=== PATIENT | male | born 1995 | race African-American/Black ===

== ENCOUNTER 2020-03-20 16:56 | Emergency (ER) | payer BC, MEDICARE, OTHER ==
--- NOTE | 2020-03-20 17:38 | EDM.PDOC ---
ED HPI GENERAL MEDICAL PROBLEM - General Chief Complaint: Respiratory Problem Stated Complaint: COUGH, COVID EXPOSURE Time Seen by Provider: 03/20/20 16:58 Source of Information: Reports: Patient History Limitations: Reports: No Limitations - History of Present Illness INITIAL COMMENTS - FREE TEXT/NARRATIVE: Patient comes to ER requesting Covid testing. Has had cough and scratchy throat since yesterday. Both of his two roommates are Covid + and currently ill. No fever. No SOB. No other complaints. Denies other chronic health problems. Works at [employer]. - Related Data Allergies Allergy/AdvReac Type Severity Reaction Status Date / Time No Known Allergies Allergy Verified 03/20/20 17:04 Home Meds: Home Meds . [No Known Home Meds] 03/20/20 [History] Past Medical History - Past Health History Medical/Surgical History: Denies Medical/Surgical History ED ROS GENERAL - Review of Systems Review Of Systems: Comprehensive ROS is negative, except as noted in HPI. ED EXAM, GENERAL - Physical Exam Exam: See Below Exam Limited By: No Limitations General Appearance: Alert, WD/WN, No Apparent Distress Eye Exam: Bilateral Eye: EOMI, PERRL Ears: Hearing Grossly Normal Nose: No: Nasal Deformity, Nasal Swelling, Nasal Drainage Throat/Mouth: Normal Lips, Normal Voice, No Airway Compromise Head: Atraumatic, Normocephalic Neck: Supple, Full Range of Motion Respiratory/Chest: No Respiratory Distress, Lungs Clear, Normal Breath Sounds, No Accessory Muscle Use Cardiovascular: Regular Rate, Rhythm, No Murmur GI/Abdominal: Soft, Non-Tender (Male) Exam: Deferred Rectal (Males) Exam: Deferred Back Exam: No: Muscle Spasm Extremities: Normal Capillary Refill Neurological: Alert, Oriented, Normal Cognition, Normal Gait Psychiatric: Normal Affect, Normal Mood Skin Exam: Warm, Dry, Intact, Normal Color Course - Vital Signs Last Recorded V/S: Last Vital Signs Temp 36.6 C 03/20/20 16:58 Pulse 97 03/20/20 16:58 Resp 14 03/20/20 16:58 BP 160/90 H 03/20/20 16:58 Pulse Ox 97 03/20/20 16:58 - Orders/Labs/Meds Orders: Active Orders 24 hr Category Date Time Status CORONAVIRUS COVID-19 PCR PHL Routine Lab 03/20/20 17:30 Ordered - Re-Assessments/Exams Free Text/Narrative Re-Assessment/Exam: 03/20/20 17:49 Patient is without acute complaint other than wanting to be tested and off work from [employer]. BP elevated but vital signs otherwise stable and he has good oxygenation. BP should be rechecked when patient is feeling better. No additional procedures such as lab work/xray required at this time. Precautions reviewed. To follow up as needed PRN worsening. Departure - Departure Time of Disposition: 17:38 Disposition: Home, Self-Care 01 Condition: Good Clinical Impression: Suspected COVID-19 virus infection - Discharge Information *PRESCRIPTION DRUG MONITORING PROGRAM REVIEWED*: Not Applicable *COPY OF PRESCRIPTION DRUG MONITORING REPORT IN PATIENT DENIZ: Not Applicable Instructions: COVID-19 Frequently Asked Questions Referrals: PCP,None [Primary Care Provider] - Forms: ED Department Discharge Additional Instructions: Await further instructions from [facility] Sepsis Event Note (ED) - Evaluation Sepsis Screening Result: No Definite Risk - Focused Exam Vital Signs: Vital Signs Temp Pulse Resp BP Pulse Ox 03/20/20 16:58 36.6 C 97 14 160/90 H 97 - My Orders Last 24 Hours: My Active Orders 03/20/20 17:30 CORONAVIRUS COVID-19 PCR PHL Routine - Assessment/Plan Last 24 Hours: My Active Orders 03/20/20 17:30 CORONAVIRUS COVID-19 PCR PHL Routine
== END 2020-03-20 17:45 | disposition home or self-care (01) ==
LOC: LL.ED 16:56
DX: R05 Cough (principal); Z20.828 Contact with and (suspected) exposure to other viral communicable diseases
CPT/HCPCS: 99283

== ENCOUNTER 2020-06-05 21:41 | Emergency (ER) | payer BC ==
[2020-06-05] MEDS ORDERED: Lactated Ringers 1,000 ML IV ONE (21:59)
[2020-06-05] MEDS ORDERED: Famotidine 20 MG/2 ML SDV IVPUSH ONE (21:59)
[2020-06-05] MEDS ORDERED: Pantoprazole 40 MG Vial IVPUSH ONE (21:59)
[2020-06-05] MEDS ORDERED: Ondansetron 4 MG/2 ML SDV IVPUSH ONE (21:59)
--- NOTE | 2020-06-05 21:59 | EDM.PDOC ---
ED HPI GENERAL MEDICAL PROBLEM - General Chief Complaint: General Stated Complaint: ABDOMINALM PAIN Time Seen by Provider: 06/05/20 21:55 Source of Information: Reports: Patient, Old Records ([facility] EMR. No paper hospital chart available.) History Limitations: Reports: No Limitations - History of Present Illness INITIAL COMMENTS - FREE TEXT/NARRATIVE: Patient drove himself to the emergency room via private automobile for evaluation of a 9-day history intermittent almost daily episodes of mostly left upper and left lower abdominal cramping associated with occasional emesis, including 3 episodes of emesis today. He did have a very small bowel movement earlier today however he is not aware when he had a last good bowel movement. He does have known problems of chronic constipation and GERD but no known history of food poisoning, infection, etc.. He did take some Tylenol yesterday, however no medications today. No recent history of heartburn, hematemesis, diarrhea, melena, gross hematochezia, or any food intolerance, including fatty foods, etc.. He denies any gross hematuria, colic, or other UTI symptoms. The patient also denies any recent fever, cough, wheezing, dyspnea, etc.. His symptoms have completely resolved by time of arrival to the emergency room, however 04/15 sharp abdominal cramping shortly prior to arrival as above. Onset: Gradual, Other (As above) Duration: Intermittent, Resolved Prior to Arrival Location: Reports: Abdomen. Denies: Head, Face, Neck, Chest, Back, Pelvis, Upper Extremity, Left, Upper Extremity, Right, Lower Extremity, Left, Lower Extremity, Right, Radiates to Quality: Reports: Same as Previous Episode, Sharp Severity: Severe Improves with: Reports: None Worsens with: Reports: None Context: Reports: Other (As above). 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 [No Known Home Meds] 03/20/20 [History] Past Medical History HEENT History: Reports: None. Denies: Allergic Rhinitis, Hard of Hearing, Impaired Vision, Otitis Media, Retinal Detachment Cardiovascular History: Reports: None, Other (See Below). Denies: Afib, Aneurysm, Arrhythmia, Blood Clots/VTE/DVT, Heart Murmur, High Cholesterol, Hypertension, Syncope Other Cardiovascular History: He does not know his cholesterol status. Respiratory History: Denies: Asthma, Bronchitis, Recurrent, COPD, Intubation, Difficult, Intubation, Previous, PE, Pneumonia, Recurrent, Pneumothorax, Sleep Apnea Gastrointestinal History: Reports: Bowel Obstruction, Chronic Constipation, GERD. Denies: Celiac Disease, Cholelithiasis, Gastritis, GI Bleed, Inflammatory Bowel Disease, Irritable Bowel Syndrome, PUD Genitourinary History: Reports: None. Denies: Acute Renal Failure, Chronic Renal Insuffiency, Renal Calculus, STD, Urinary Incontinence, UTI, Recurrent Musculoskeletal History: Reports: None. Denies: Arthritis, Back Pain, Chronic, Fracture, Gout, Neck Pain, Chronic, Osteoarthritis, RA, SLE Neurological History: Reports: Headaches, Chronic, Migraines. Denies: Concussion, Head Trauma, Seizure Psychiatric History: Reports: None. Denies: Abuse, Victim of, ADD, ADHD, Addiction, Anxiety, Depression, Psych Hospitalization(s), PTSD, Suicide Attempt, Suicidal Ideation Endocrine/Metabolic History: Reports: None. Denies: Diabetes, Type I, Diabetes, Type II, Diabetes Mellitus, Type 3c, Hypothyroidism, IDDM Hematologic History: Reports: None. Denies: Anemia, Blood Transfusion(s) Immunologic History: Reports: None. Denies: AIDS, HIV, SLE Oncologic (Cancer) History: Reports: None. Denies: Colon, Hodgkin's Lymphoma, Leukemia, Lymphoma, Malignant Melanoma, Non-Hodgkin's Lymphoma, Squamous Cell Carcinoma Dermatologic History: Reports: None. Denies: Eczema, Psoriasis - Infectious Disease History Infectious Disease History: Reports: None, Novel Coronavirus (03/20/2020.). Denies: C-Difficile, Chicken Pox, Meningitis, Mononucleosis, Mumps, Pertussis (Whooping Cough), Rheumatic Fever, Rubella, Scarlet Fever, Shingles, TB, VRE - Past Surgical History Head Surgeries/Procedures: Reports: None HEENT Surgical History: Reports: None. Denies: Adenoidectomy, Cataract Surgery, Eye Surgery, LASIK, Myringotomy w Tube(s), Naso-Sinus Surgery, Oral Surgery, Tonsillectomy Cardiovascular Surgical History: Reports: None. Denies: Varicose Respiratory Surgical History: Reports: None. Denies: Thoracentesis GI Surgical History: Reports: None. Denies: Appendectomy, Cholecystectomy, Colon, EGD, Hernia, Abdominal, Hernia, Inguinal, Hernia Repair/Other Male Surgical History: Reports: None. Denies: Circumcision, Vasectomy Endocrine Surgical History: Reports: None. Denies: Thyroid Biopsy Neurological Surgical History: Reports: None. Denies: C-Spine, Discectomy, Laminectomy, Lumbar Spine, Sacral Spine, Spinal Fusion, Vertebroplasty Musculoskeletal Surgical History: Reports: None. Denies: Arthroscopic Procedure, Carpal Tunnel, Ganglion Cyst, Joint Replacement, ORIF Oncologic Surgical History: Reports: None Dermatological Surgical History: Reports: None Social & Family History - Family History : Reports: None. Denies: Renal Calculus - Tobacco Use Tobacco Use Status *Q: Current Every Day Tobacco User Tobacco Use Within Last Twelve Months: Cigarettes Years of Tobacco use: 7 Packs/Tins Daily: 0.1 Packs/Tins Daily Comment: Started smoking at age 17 with maximum use of 1 pack/day. Used Tobacco, but Quit: No Smoking Cessation Information Provided To Patient: Yes Second Hand Smoke Exposure: No Second Hand Smoke Education Provided: No - Caffeine Use Caffeine Use: Reports: Soda (3 sodas per day). Denies: Coffee, Energy Drinks, Tea - Alcohol Use Alcohol Use History: Yes Days Per Week of Alcohol Use: 2 Number of Drinks Per Day: 5 Number of Drinks Per Day Comment: Usually mixed drinks. No previous DWIs, problems with alcohol abuse, etc. Total Drinks Per Week: 10 Alcohol Use in Last Twelve Months: Yes - Recreational Drug Use Recreational Drug Use: No Drug Use in Last 12 Months: No Recreational Drug Type: Denies: Amphetamines (Speed), Cocaine, Heroin, Inhalants (Glues, Solvents, Aerosols), LSD (Acid), Marijuana/Hashish, Methamphetamine, Morphine, Oxycodone - Living Situation & Occupation Living situation: Reports: Single (No children), Other (2 roommates) Occupation: Employed ([employer]) ED ROS GENERAL - Review of Systems Review Of Systems: Comprehensive ROS is negative, except as noted in HPI. ED EXAM, GENERAL - Physical Exam Exam: Not Obtained Exam Limited By: No Limitations General Appearance: Alert, WD/WN, No Apparent Distress Head: Atraumatic, Normocephalic. No: Facial Swelling, Facial Tenderness, Sinus Tenderness Neck: Normal Inspection, Supple, Non-Tender, Full Range of Motion. No: Lymphadenopathy (L), Lymphadenopathy (R), Thyromegaly Respiratory/Chest: No Respiratory Distress, Lungs Clear, Normal Breath Sounds, No Accessory Muscle Use, Chest Non-Tender. No: Pleural Rub, Retractions Cardiovascular: Normal Peripheral Pulses, Regular Rate, Rhythm, No Edema, No Gallop, No JVD, No Murmur, No Rub. No: Gallop/S3, Gallop/S4, Friction Rub Peripheral Pulses: 2+: Radial (L), Radial (R) GI/Abdominal: Normal Bowel Sounds, Soft, Non-Tender, No Organomegaly, No Distention, No Abnormal Bruit, No Mass. No: Guarding (Male) Exam: Deferred Rectal (Males) Exam: Deferred Back Exam: Normal Inspection, Full Range of Motion. No: CVA Tenderness (L), CVA Tenderness (R), Muscle Spasm Extremities: Normal Inspection, Normal Range of Motion, Non-Tender, No Pedal Edema, Normal Capillary Refill. No: Jimmy's Sign Neurological: Alert, Oriented, CN II-XII Intact, Normal Cognition, Normal Gait, Normal Reflexes, No Motor/Sensory Deficits Psychiatric: Normal Affect, Normal Mood Skin Exam: Warm, Dry, Intact, Normal Color, No Rash. No: Diaphoretic, Wound/Incision Lymphatic: No Adenopathy Course - Vital Signs Last Recorded V/S: Last Vital Signs Temp 36.9 C 06/05/20 21:42 Pulse 73 06/05/20 21:42 Resp 16 06/05/20 21:42 BP 152/93 H 06/05/20 21:53 Pulse Ox 100 06/05/20 21:42 Vital Signs - 24 hr 06/05/20 06/05/20 21:42 21:53 Temperature [ 36.9 C Temporal] Pulse, 73 Peripheral [ Right Pulse Oximetry] Respiratory 16 Rate Blood Pressure 160/93 H 152/93 H [Left Upper Arm ] O2 Sat by Pulse 100 Oximetry - Orders/Labs/Meds Labs: Laboratory Tests 06/05/20 06/05/2020 Range/Units 22:19 22:19 22:19 WBC 7.8 (4.0-10.2) K/uL RBC 4.68 (4.33-5.41) M/uL Hgb 14.3 (13.1-16.8) g/dL Hct 42.3 (39.0-49.0) % MCV 90.4 (84.0-98.0) fL MCH 30.6 (28.2-33.3) pg MCHC 33.8 (31.7-36.0) g/dL RDW 14.3 H (11.2-14.1) % Plt Count 274 (150-350) K/uL Neut % (Auto) 50.0 (45.0-80.0) % Lymph % (Auto) 18.4 (10.0-50.0) % Stewart % (Auto) 12.1 (2.0-14.0) % Eos % (Auto) 19.1 H (0.0-5.0) % Baso % (Auto) 0.4 (0.0-2.0) % Neut # (Auto) 3.91 (1.40-7.00) K/uL Lymph # (Auto) 1.44 (0.50-3.50) K/uL Stewart # (Auto) 0.95 (0.00-1.00) K/uL Eos # (Auto) 1.49 H (0.00-0.50) K/uL Baso # (Auto) 0.03 (0.00-0.20) K/uL PT 10.2 (9.5-12.0) SEC INR 1.0 APTT 24.5 (24.5-32.8) SEC Sodium (136-145) mmol/L Potassium (3.5-5.1) mmol/L Chloride (98-107) mmol/L Carbon Dioxide (21.0-32.0) mmol/L BUN (7-18) mg/dL Creatinine (0.51-1.17) mg/dL Est Cr Clr Drug Dosing mL/min Estimated GFR (MDRD) mL/min Glucose (74-106) mg/dL Lactic Acid (0.4-2.0) mmol/L Uric Acid (2.6-7.2) mg/dL Calcium (8.5-10.1) mg/dL Magnesium (1.8-2.4) mg/dL Total Bilirubin (0.2-1.0) mg/dL AST (15-37) U/L ALT (12-78) U/L Alkaline Phosphatase (46-116) IU/L Total Protein (6.4-8.2) g/dL Albumin (3.4-5.0) g/dL Amylase 27 (25-115) U/L Lipase (73-393) U/L Specimen Type Urine Color Urine Appearance Urine pH (5.0-9.0) Ur Specific Honor (1.005-1.030) Urine Protein (NEGATIVE) mg/dL Urine Glucose (UA) (NEGATIVE) mg/dL Urine Ketones (NEGATIVE) mg/dL Urine Occult Blood (NEGATIVE) Urine Nitrite (NEGATIVE) Urine Bilirubin (NEGATIVE) Urine Urobilinogen (0.2-1.0) E.U./dL Ur Leukocyte Esterase (NEGATIVE) U Hyaline Cast (Auto) Urine RBC /HPF Urine WBC /HPF Ur Epithelial Cells /LPF Urine Bacteria (NONE TO FEW) /HPF Urine Mucus (NEGATIVE) /LPF 06/05/20 06/05/20 06/05/20 Range/Units 22:19 22:19 22:24 WBC (4.0-10.2) K/uL RBC (4.33-5.41) M/uL Hgb (13.1-16.8) g/dL Hct (39.0-49.0) % MCV (84.0-98.0) fL MCH (28.2-33.3) pg MCHC (31.7-36.0) g/dL RDW (11.2-14.1) % Plt Count (150-350) K/uL Neut % (Auto) (45.0-80.0) % Lymph % (Auto) (10.0-50.0) % Stewart % (Auto) (2.0-14.0) % Eos % (Auto) (0.0-5.0) % Baso % (Auto) (0.0-2.0) % Neut # (Auto) (1.40-7.00) K/uL Lymph # (Auto) (0.50-3.50) K/uL Stewart # (Auto) (0.00-1.00) K/uL Eos # (Auto) (0.00-0.50) K/uL Baso # (Auto) (0.00-0.20) K/uL PT (9.5-12.0) SEC INR APTT (24.5-32.8) SEC Sodium 139 (136-145) mmol/L Potassium 3.4 L (3.5-5.1) mmol/L Chloride 100 (98-107) mmol/L Carbon Dioxide 27.0 (21.0-32.0) mmol/L BUN 14 (7-18) mg/dL Creatinine 0.88 (0.51-1.17) mg/dL Est Cr Clr Drug Dosing 123.49 mL/min Estimated GFR (MDRD) > 60 mL/min Glucose 94 (74-106) mg/dL Lactic Acid 1.9 (0.4-2.0) mmol/L Uric Acid 4.8 (2.6-7.2) mg/dL Calcium 8.7 (8.5-10.1) mg/dL Magnesium 1.5 L (1.8-2.4) mg/dL Total Bilirubin 0.4 (0.2-1.0) mg/dL AST 23 (15-37) U/L ALT 28 (12-78) U/L Alkaline Phosphatase 98 (46-116) IU/L Total Protein 7.9 (6.4-8.2) g/dL Albumin 3.9 (3.4-5.0) g/dL Amylase (25-115) U/L Lipase 31 L (73-393) U/L Specimen Type Urinvoid Urine Color Saba Urine Appearance Clear Urine pH 6.5 (5.0-9.0) Ur Specific Honor >= 1.030 (1.005-1.030) Urine Protein 30 H (NEGATIVE) mg/dL Urine Glucose (UA) Negative (NEGATIVE) mg/dL Urine Ketones 40 H (NEGATIVE) mg/dL Urine Occult Blood Trace-intact H (NEGATIVE) Urine Nitrite Negative (NEGATIVE) Urine Bilirubin Small H (NEGATIVE) Urine Urobilinogen 1.0 (0.2-1.0) E.U./dL Ur Leukocyte Esterase Negative (NEGATIVE) U Hyaline Cast (Auto) Occasional Urine RBC 5-10 H /HPF Urine WBC Not seen /HPF Ur Epithelial Cells Occasional /LPF Urine Bacteria Occasional (NONE TO FEW) /HPF Urine Mucus Moderate H (NEGATIVE) /LPF Urine specimen set up for culture and sensitivity. Meds: Medications Discontinued Medications Generic Name Dose Route Start Last Admin Trade Name Octavioq PRN Reason Stop Dose Admin Famotidine 40 mg 06/05/20 21:59 06/05/20 22:28 Pepcid IVPUSH 06/05/20 22:00 40 mg ONETIME ONE Administration Lactated Ringer's 1,000 mls @ 999 mls/hr 06/05/20 21:59 06/05/20 22:41 Ringers, Lactated IV 06/05/20 22:59 999 mls/hr .BOLUS ONE Administration Magnesium Citrate 0 ml 06/05/20 23:04 06/05/20 23:21 Citrate Of Magnesia PO 06/05/20 23:05 296 ml ONETIME ONE Administration Ondansetron HCl 4 mg 06/05/20 21:59 06/05/20 22:28 Zofran IVPUSH 06/05/20 22:00 4 mg ONETIME ONE Administration Pantoprazole Sodium 40 mg 06/05/20 21:59 06/05/20 22:28 Protonix Iv IVPUSH 06/05/20 22:00 40 mg ONETIME ONE Administration Polyethylene Glycol 17 gm 06/05/20 23:04 06/05/20 23:21 Miralax PO 06/05/20 23:05 17 gm ONETIME ONE Administration Sodium Chloride 10 ml 06/05/20 21:59 06/05/20 23:25 Saline Flush FLUSH 10 ml ASDIRECTED PRN Administration Keep Vein Open - Radiology Interpretation Free Text/Narrative:: Acute abdominal x-ray shows evidence of moderate to severe diffuse stool with no evidence of fluid levels, free air, ileus, obstruction, intra-abdominal calcifications, pulmonary infiltrates, cardiomegaly, CHF, pneumothorax, etc. Departure - Departure Time of Disposition: 23:45 Disposition: Home, Self-Care 01 Condition: Good Clinical Impression: Tobacco abuse counseling, Elevated blood pressure reading, Hypokalemia Abdominal pain Qualifiers: Abdominal location: left lower quadrant Qualified Code(s): R10.32 - Left lower quadrant pain Constipation Qualifiers: Constipation type: other constipation type Qualified Code(s): K59.09 - Other constipation - Discharge Information *PRESCRIPTION DRUG MONITORING PROGRAM REVIEWED*: Not Applicable *COPY OF PRESCRIPTION DRUG MONITORING REPORT IN PATIENT DENIZ: Not Applicable Instructions: Steps to Quit Smoking, [id number], Health Risks of Smoking, Chronic Constipation, Abdominal Pain, Adult, [id number] Referrals: PCP,None [Primary Care Provider] - Forms: ED Department Discharge Additional Instructions: 1. Follow up with your regular provider in 10-14 days as needed, if symptoms persist. Bring these discharge instructions with you to that visit.. 2. [place] diet including encouragement of oral fluids such as sports drinks, etc. for 24-48 hours as directed. Advance to regular high-fiber diet as tolerated thereafter. 3. Stop all tobacco use SYL as directed/per provided information and consider contacting [employer]uit LIne, etc.. 4. Work excuse- See Form 5. Immediately after this visit verify that your cellular telephone's voicemail has been activated and is empty. Also verify that your home telephone's answering machine is operating properly and has space to receive messages. Note that it is sometimes necessary for us to be able to contact you at a later date to discuss your medical care. 6. Please remember that we are ALWAYS here for you and want to answer any questions you may have. Feel free to call the hospital any time and we call you back SYL. 7. Continue to observe your blood pressures closely through your regular provider in the [facility] nurse as discussed. 8. Obtain your influenza booster SYL. Sepsis Event Note (ED) - Evaluation Sepsis Screening Result: No Definite Risk - Problem List & Annotations (1) Abdominal pain SNOMED Code(s): 60376327 Code(s): R10.9 - UNSPECIFIED ABDOMINAL PAIN Status: Acute Priority: High Onset Date: ~06/04/20 Annotation/Comment:: Patient missed work on 06/04 and also today. Abdominal pain likely secondary to his constipation. MiraLAX and magnesium citrate given prior to discharge with patient counseled on high-fiber diet with encouragement of oral fluids. [employer] work excuse was completed. Otherwise overall good response to medical therapy as above. Qualifiers: Abdominal location: left lower quadrant Qualified Code(s): R10.32 - Left lo wer quadrant pain (2) Constipation SNOMED Code(s): 17762139 Code(s): K59.00 - CONSTIPATION, UNSPECIFIED Status: Chronic Priority: Medium Annotation/Comment:: Dietary changes as above. Qualifiers: Constipation type: other constipation type Qualified Code(s): K59.09 - Other constipation (3) Elevated blood pressure reading SNOMED Code(s): 14069188 Code(s): R03.0 - ELEVATED BLOOD-PRESSURE READING, W/O DIAGNOSIS OF HTN Status: Acute Priority: Medium Onset Date: 06/05/20 Annotation/Comment:: No previous history of hypertension. Continue to observe closely by his regular provider, etc. as per discharge instructions.. (4) Tobacco abuse counseling SNOMED Code(s): 388412522, 125570099, 301709094 Code(s): Z71.6 - TOBACCO ABUSE COUNSELING Status: Chronic Priority: Medium Annotation/Comment:: Tobacco cessation strongly encouraged with information provided at discharge. (5) Hypokalemia SNOMED Code(s): 80338206 Code(s): E87.6 - HYPOKALEMIA Status: Acute Priority: Medium Onset Date: 06/05/20 Annotation/Comment:: Mild hypokalemia secondary to emesis as above. In addition, notes some mild ketonuria with no significant evidence of dehydration by clinical exam. 1 L lactated Ringer's IV bolus given in the emergency room. - Problem List Review Problem List Initiated/Reviewed/Updated: Yes - Assessment/Plan Assessment:: As above Plan: As above. Extensive precautions were given to the patient, who is in agreement with the treatment plan. See Patient Instructions for further treatment and plan.
[2020-06-05 22:51] LABS: PTT,PARTIAL THROMBOPLSTIN TIME 24.5 SEC (24.5-32.8)
[2020-06-05 22:53] LABS: CHLORIDE,CL 100 mmol/L (98-107); SODIUM,NA 139 mmol/L (136-145)
[2020-06-05] MEDS ORDERED: Magnesium Citrate Solution 296 ML Bottle PO ONE (23:04)
[2020-06-05] MEDS ORDERED: Polyethylene Glycol 3350 Powder 17 GM Packet PO ONE (23:04)
[2020-06-05] MEDS: Sodium Chloride 0.9% 10 ML Syringe FLUSH PRN ×3 (23:23→23:25)
== END 2020-06-05 23:45 | disposition home or self-care (01) ==
LOC: LL.ED 21:41
DX: K59.09 Other constipation (principal); E87.6 Hypokalemia; R03.0 Elevated blood-pressure reading, without diagnosis of hypertension; F17.210 Nicotine dependence, cigarettes, uncomplicated; Z71.6 Tobacco abuse counseling
CPT/HCPCS: 36415; 74022; 80053; 81001; 82150; 83605; 83690; 83735; 84550; 85025; 85610; 85730; 87086; 96361; 96374; 96375; 99283; 99284-25; A9270-GY; C9113; J2405; J3490; J7120

== ENCOUNTER 2023-09-26 17:48 | Observation (INO) | payer MEDICARE, OTHER ==
[2023-09-26] MEDS ORDERED: Sodium Chloride 0.9% 10 ML Syringe FLUSH PRN (17:57)
[2023-09-26] MEDS: Prochlorperazine 10 MG/2 ML SDV IV ONE (18:08)
[2023-09-26 18:10] LABS: BASOPHILS ABSOLUTE AUTO 0.03 K/uL (0.00-0.20); BASOPHILS PERCENT AUTO 0.4 % (0.0-2.0); EOSINOPHILS ABSOLUTE AUTO 0.24 K/uL (0.00-0.50); HEMATOCRIT 49.5 % (39.0-49.0); HEMOGLOBIN 16.7 g/dL (13.1-16.8); LYMPHOCYTES ABSOLUTE AUTO 2.48 K/uL (0.50-3.50); LYMPHOCYTES PERCENT AUTO 30.7 % (10.0-50.0); MEAN CORPUSCULAR HEMOGLOBIN 29.8 pg (28.2-33.3); MEAN CORPUSCULAR HGB CONC 33.7 g/dL (31.7-36.0); MEAN CORPUSCULAR VOLUME 88.2 fL (84.0-98.0); MONOCYTES ABSOLUTE AUTO 1.09 K/uL (0.00-1.00); MONOCYTES PERCENT AUTO 13.5 % (2.0-14.0); NEUTROPHILS ABSOLUTE AUTO 4.24 K/uL (1.40-7.00); NEUTROPHILS PERCENT AUTO 52.4 % (45.0-80.0); PLATELET COUNT,PLT 301 K/uL (150-350); RED BLOOD CELL COUNT 5.61 M/uL (4.33-5.41); RED CELL DISTRIBUTION WIDTH 14.2 % (11.2-14.1); WHITE BLOOD CELL COUNT,WBC 8.1 K/uL (4.0-10.2)
[2023-09-26 18:25] LABS: PROTHROMBIN TIME 10.3 SEC (9.0-11.1)
[2023-09-26 18:29] LABS: ALBUMIN 4.8 g/dL (3.4-5.0); BILIRUBIN TOTAL 0.5 mg/dL (0.2-1.0); CARBON DIOXIDE,CO2 36.1 mmol/L (21.0-32.0); CREATININE 1.32 mg/dL (0.51-1.17); EST CRCL DRUG DOSING (CG) 90.06 mL/min; PROTEIN TOTAL,TP 9.5 g/dL (6.4-8.2)
[2023-09-26 18:30] LABS: ANION GAP 12.6 meq/L (7-15); POTASSIUM,K 2.7 mmol/L (3.5-5.1)
[2023-09-26 18:57] LABS: CORONAVIRUS COVID-19 NAA NEGATIVE (NEGATIVE); INFLUENZA A NAA NEGATIVE (NEGATIVE); INFLUENZA B NAA NEGATIVE (NEGATIVE); RESPIRATORY SYNCYTIAL VIR NAA NEGATIVE (NEGATIVE)
[2023-09-26] MEDS: Potassium Bicarbonate/Cit Ac 20 MEQ Effervescent Tab PO SCH (19:02)
[2023-09-26] MEDS: Potassium Chloride Riders 10 MEQ in Premix Bag 1 BAG IV SCH (19:02)
[2023-09-26] MEDS: Sodium Chloride 0.9% 1,000 ML IV ONE (19:07)
[2023-09-26] MEDS ORDERED: Acetaminophen 325 MG Tab PO PRN (19:38)
[2023-09-26] MEDS ORDERED: Ondansetron 4 MG/2 ML SDV IVPUSH PRN (19:38)
[2023-09-26] MEDS ORDERED: Morphine 2 MG/ML SYRINGE IVPUSH PRN (19:38)
[2023-09-26] MEDS ORDERED: Naloxone 0.4 MG/ML SDV IVPUSH PRN (19:38)
[2023-09-26] MEDS: Sodium Chloride 0.9% 1,000 ML IV SCH (20:14)
[2023-09-26] MEDS ORDERED: Prochlorperazine 5 MG Tab PO PRN (20:21)
[2023-09-26] MEDS ORDERED: Prochlorperazine 10 MG/2 ML SDV IVPUSH PRN (20:23)
[2023-09-26] MEDS ORDERED: Prochlorperazine 5 MG in Sodium Chloride 0.9% 100 ML IV PRN (23:00)
[2023-09-27 11:42] LABS: APPEARANCE,URINE CLEAR; BILIRUBIN,URINE SMALL (NEGATIVE); COLOR,URINE DARK YELLOW; GLUCOSE,URINE NEGATIVE (NEGATIVE); KETONES,URINE 15 mg/dL (NEGATIVE); LEUKOCYTE ESTERASE,URINE NEGATIVE (NEGATIVE); NITRITE,URINE NEGATIVE (NEGATIVE); OCCULT BLOOD,URINE NEGATIVE (NEGATIVE); PH,URINE >= 9.0 (5.0-9.0); PROTEIN,URINE 30 mg/dL (NEGATIVE)
[2023-09-27 11:43] LABS: BACTERIA,URINE NOT SEEN /HPF (NONE TO FEW); EPITHELIAL CELLS,URINE FEW /LPF; RBC,URINE 0-5 /HPF; WBC,URINE 0-5 /HPF
[2023-09-27 11:45] LABS: ALBUMIN 3.9 g/dL (3.4-5.0); ANION GAP 12.7 meq/L (7-15); BILIRUBIN TOTAL 0.5 mg/dL (0.2-1.0); CALCIUM 9.2 mg/dL (8.5-10.1); CARBON DIOXIDE,CO2 31.5 mmol/L (21.0-32.0); CREATININE 1.13 mg/dL (0.51-1.17); EST CRCL DRUG DOSING (CG) 104.27 mL/min; POTASSIUM,K 3.2 mmol/L (3.5-5.1); PROTEIN TOTAL,TP 7.8 g/dL (6.4-8.2)
[2023-09-27 11:47] LABS: BASE EXCESS VENOUS 7 mmol/L ((-2)-3); BICARBONATE,VENOUS 33 mmol/L (23-28); O2 DELIVERY DEVICE ROOM AIR; O2 SATURATION VENOUS 100 %; PCO2 VENOUS 46 mmHG (41-51); PH,VENOUS 7.45 (7.31-7.41); PO2 VENOUS 156 mmHG
[2023-09-27 12:03] LABS: CALCIUM IONIZED 1.13; CALCIUM IONIZED PH 7.4 7.45
[2023-09-27] MEDS: Magnesium Sulfate/Water 2 GM in Premix Bag 1 BAG IV ONE (12:24)
[2023-09-27] MEDS: Sodium Chloride 0.9% 100 ML IV ONE (12:30)
[2023-09-27] MEDS: Potassium Bicarbonate/Cit Ac 20 MEQ Effervescent Tab PO ONE (13:36)
[2023-09-27] MEDS ORDERED: Potassium Bicarbonate/Cit Ac 20 MEQ Effervescent Tab PO ONE (14:41)
[2023-09-27 16:14] LABS: CALCIUM 9.4 mg/dL (8.5-10.1); CARBON DIOXIDE,CO2 34.2 mmol/L (21.0-32.0); CREATININE 1.07 mg/dL (0.51-1.17); EST CRCL DRUG DOSING (CG) 110.12 mL/min; MAGNESIUM 2.7 mg/dL (1.8-2.4); POTASSIUM,K 3.7 mmol/L (3.5-5.1)
[2023-09-27 16:15] LABS: ANION GAP 9.5 meq/L (7-15)
== END 2023-09-27 17:38 | disposition home or self-care (01) ==
LOC: LL.ED 17:48 → LL.MS 19:48
PROVIDERS: ADMIT Physician Assistant; ATTEND Physician Assistant
DX: E87.6 Hypokalemia (principal); N17.9 Acute kidney failure, unspecified; R11.2 Nausea with vomiting, unspecified; K21.9 Gastro-esophageal reflux disease without esophagitis; K59.00 Constipation, unspecified; Z79.899 Other long term (current) drug therapy
CPT/HCPCS: 0241U; 36415; 80048; 80053; 81001; 82330; 82803; 83690; 83735; 84132; 84133; 84436; 84443; 85025; 85610; 93005; 93010; 96361; 96365; 96366; 96367; 96374; 96375; 96376; 99223; 99239; 99285-25; A9270-GY; G0378; J0780; J3475; J3480; J3490; J7030

== ENCOUNTER 2023-12-14 11:05 | Emergency (ER) | payer SELFPAY ==
[2023-12-14] MEDS: Ondansetron 4 MG/2 ML SDV IVPUSH ONE (11:49)
[2023-12-14 11:52] LABS: BASOPHILS ABSOLUTE AUTO 0.02 K/uL (0.00-0.20); BASOPHILS PERCENT AUTO 0.2 % (0.0-2.0); EOSINOPHILS ABSOLUTE AUTO 0.02 K/uL (0.00-0.50); EOSINOPHILS PERCENT AUTO 0.2 % (0.0-5.0); HEMATOCRIT 48.7 % (39.0-49.0); HEMOGLOBIN 16.8 g/dL (13.1-16.8); LYMPHOCYTES ABSOLUTE AUTO 2.23 K/uL (0.50-3.50); LYMPHOCYTES PERCENT AUTO 26.2 % (10.0-50.0); MEAN CORPUSCULAR HEMOGLOBIN 29.3 pg (28.2-33.3); MEAN CORPUSCULAR HGB CONC 34.5 g/dL (31.7-36.0); MONOCYTES ABSOLUTE AUTO 1.02 K/uL (0.00-1.00); NEUTROPHILS ABSOLUTE AUTO 5.23 K/uL (1.40-7.00); NEUTROPHILS PERCENT AUTO 61.4 % (45.0-80.0); PLATELET COUNT,PLT 285 K/uL (150-350); RED BLOOD CELL COUNT 5.73 M/uL (4.33-5.41); RED CELL DISTRIBUTION WIDTH 13.2 % (11.2-14.1); WHITE BLOOD CELL COUNT,WBC 8.5 K/uL (4.0-10.2)
[2023-12-14] MEDS: Sodium Chloride 0.9% 10 ML Syringe FLUSH PRN (11:52)
[2023-12-14] MEDS: Haloperidol Lactate 5 MG/ML SDV IVPUSH ONE (11:58)
[2023-12-14] MEDS: Sodium Chloride 0.9% 1,000 ML IV ONE (12:00)
[2023-12-14 12:13] LABS: ALBUMIN 4.9 g/dL (3.4-5.0); BILIRUBIN TOTAL 0.9 mg/dL (0.2-1.0); CALCIUM 10.2 mg/dL (8.5-10.1); CARBON DIOXIDE,CO2 29.8 mmol/L (21.0-32.0); CREATININE 1.74 mg/dL (0.51-1.17); EST CRCL DRUG DOSING (CG) 68.75 mL/min; MAGNESIUM 2.5 mg/dL (1.8-2.4); PROTEIN TOTAL,TP 9.5 g/dL (6.4-8.2)
[2023-12-14 12:22] LABS: ANION GAP 20.1 meq/L (7-15); POTASSIUM,K 2.9 mmol/L (3.5-5.1)
[2023-12-14] MEDS: Potassium Bicarbonate/Cit Ac 20 MEQ Effervescent Tab PO ONE ×4 (12:37→15:28)
[2023-12-14] MEDS ORDERED: Sodium Chloride 0.9% 1,000 ML IV ONE (12:45)
[2023-12-14] MEDS: Lactated Ringers 1,000 ML IV ONE ×2 (13:06→14:16)
[2023-12-14] MEDS: Promethazine 25 MG/ML SDV IM ONE (14:18)
[2023-12-14 15:15] LABS: CALCIUM 8.7 mg/dL (8.5-10.1); CARBON DIOXIDE,CO2 30.2 mmol/L (21.0-32.0); CREATININE 1.39 mg/dL (0.51-1.17); EST CRCL DRUG DOSING (CG) 86.07 mL/min; POTASSIUM,K 3.8 mmol/L (3.5-5.1)
[2023-12-14 15:17] LABS: APPEARANCE,URINE CLEAR; BILIRUBIN,URINE SMALL (NEGATIVE); COLOR,URINE DARK YELLOW; GLUCOSE,URINE NEGATIVE (NEGATIVE); KETONES,URINE 80 mg/dL (NEGATIVE); LEUKOCYTE ESTERASE,URINE NEGATIVE (NEGATIVE); NITRITE,URINE NEGATIVE (NEGATIVE); OCCULT BLOOD,URINE TRACE-INTACT (NEGATIVE); PH,URINE 7.5 (5.0-9.0); PROTEIN,URINE NEGATIVE (NEGATIVE)
[2023-12-14 15:20] LABS: ANION GAP 12.6 meq/L (7-15)
[2023-12-14 15:25] LABS: BACTERIA,URINE NOT SEEN /HPF (NONE TO FEW); EPITHELIAL CELLS,URINE FEW /LPF; RBC,URINE 0-5 /HPF; WBC,URINE 0-5 /HPF
[2023-12-14 15:32] LABS: AMPHETAMINES SCREEN, URINE NEGATIVE (NEGATIVE); BARBITURATE SCREEN,URINE NEGATIVE (NEGATIVE); BENZODIAZEPINES SCREEN,URINE NEGATIVE (NEGATIVE); COCAINE METABOLITES,URINE NEGATIVE (NEGATIVE); EDDP,URINE SCREEN NEGATIVE (NEGATIVE); METHAMPHETAMINES SCREEN, URINE NEGATIVE (NEGATIVE); TCA SCREEN,URINE NEGATIVE (NEGATIVE); THC SCREEN,URINE 50 NG/ML POSITIVE (NEGATIVE)
[2023-12-14 15:33] LABS: BUPRENORPHINE SCREEN,URINE NEGATIVE (NEGATIVE); OXYCODONE SCREEN,URINE NEGATIVE (NEGATIVE)
[2023-12-14] MEDS: Take Home: Ondansetron 4 MG Tab.DIS, 5 Tab Pack PO ONE (16:20)
== END 2023-12-14 16:22 | disposition left against medical advice (07) ==
LOC: LL.ED 11:05
DX: E86.0 Dehydration (principal); R11.2 Nausea with vomiting, unspecified; F12.10 Cannabis abuse, uncomplicated; N17.9 Acute kidney failure, unspecified; E87.1 Hypo-osmolality and hyponatremia; E87.6 Hypokalemia; Z86.16 Personal history of COVID-19
CPT/HCPCS: 36415; 80048; 80053; 80305; 80307; 81001; 83605; 83735; 85025; 96361; 96374; 96375; 99284; A9270; J1630; J2405; J7030; J7120; Q0162; J3490